=== PATIENT | male | born 1960 | race African-American/Black ===

== ENCOUNTER 2022-07-13 07:52 | Emergency (ER) | payer BC ==
[~2022-07-13] VITALS: Ht 185.4 cm; Wt 93.0 kg
[2022-07-13] MEDS ORDERED: LIDOCAINE 1% INJ 50 ML MDV IJ ONE ×2 (08:06→08:30)
[2022-07-13] MEDS ORDERED: TDAP [DIPH/PERTUSSIS/TET] 0.5 ML VIAL IM ONE ×2 (08:23→08:30)
--- NOTE | 2022-07-13 09:00 | NUR ---
PATIENT BIB SELF FOR LOWER LIP LACERATION. A/O X 3. MD AT BEDSIDE FOR SURGICAL REPAIR
[2022-07-13] MEDS ORDERED: CHLO473M3 PO (09:15)
[2022-07-13] MEDS ORDERED: ACET-2605 PO (09:15)
[2022-07-13] MEDS ORDERED: ACETAMINOPHEN ES 500 MG TABLET ONE (09:16)
[2022-07-13] MEDS ORDERED: ACETAMINOPHEN 325 MG TABLET ONE (09:22)
--- NOTE | 2022-07-13 09:28 | NUR ---
Patient discharged to home in stable condition. Written and verbal after care instructions given. Patient verbalizes understanding of instruction.
[2022-07-13 09:29] VITALS: BP 146/110
[2022-07-13] MEDS ORDERED: ACETAMINOPHEN 325 MG TABLET PO ONE (09:30)
== END 2022-07-13 09:30 | disposition home or self-care (01) ==
LOC: ER 08:03
DX: S02.5XXA Fracture of tooth (traumatic), initial encounter for closed fracture (principal); S01.511A Laceration without foreign body of lip, initial encounter; R55 Syncope and collapse; W18.30XA Fall on same level, unspecified, initial encounter; Y93.89 Activity, other specified; Y92.89 Other specified places as the place of occurrence of the external cause; Y99.8 Other external cause status
CPT/HCPCS: 99283; 12011; 90471; 90715; 93005; J3490; A6403